=== PATIENT | female | born 1995 | race African-American/Black ===

== ENCOUNTER 2017-10-19 23:00 | Inpatient (IN) | payer OTHER ==
[2017-10-19] MEDS ORDERED: PROMETHAZINE HCL 25 MG/1 ML VIAL IVPB ONE (23:20)
[2017-10-19] MEDS ORDERED: BUTORPHANOL TARTRATE 1 MG/ML VIAL IVPB ONE (23:20)
[2017-10-19] MEDS: DEXTROSE 5%-LACTATED RINGERS 1,000 ML IV SCH (23:30)
[2017-10-19] MEDS ORDERED: AMPICILLIN SODIUM 2 GM VIAL ONE (23:31)
[2017-10-19] MEDS ORDERED: AMPICILLIN - 2 GM in SODIUM CHLORIDE 100 ML IVPB ONE (23:45)
[2017-10-20 00:12] LABS: BASO % 0.3 % (0-2.0); EOS % 0.8 % (0-4.5); HEMATOCRIT 36.2 % (32.4-45.2); HEMOGLOBIN 12.3 GM/dL (10.7-15.3); LYMPH % 14.4 % (8-40); MCH 31.7 pg (25.7-33.7); MCHC 33.8 g/dl (32.0-36.0); MEAN CELL VOLUME 93.8 fl (80-96); MEAN PLT VOLUME 8.1 fl (7.5-11.1); MONO % 8.3 % (3.8-10.2); NEUT % 76.2 % (42.8-82.8); PLATELET COUNT 287 K/MM3 (134-434); RBC 3.86 M/mm3 (3.60-5.2); RDW 14.1 % (11.6-15.6); WHITE BLOOD COUNT 10.2 K/mm3 (4.0-10.0)
[2017-10-20] MEDS ORDERED: BUTORPHANOL TARTRATE 1 MG/ML VIAL ONE ×2 (00:23)
[2017-10-20] MEDS ORDERED: PROMETHAZINE HCL 25 MG/1 ML VIAL ONE (00:23)
[2017-10-20 00:25] LABS: INR 0.95 (0.83-1.09); PROTHROMBIN TIME (PATIENT) 10.7 SEC (9.7-13.0)
[2017-10-20 00:28] LABS: ACTIVATED PTT 28.7 SECONDS (25.2-36.5)
[2017-10-20 00:40] LABS: ANION GAP 8 (8-16); BLOOD UREA NITROGEN 7 mg/dL (7-18); CHLORIDE 105 mmol/L (98-107); CO2 24 mmol/L (21-32); CREATININE 0.6 mg/dL (0.55-1.02); GLUCOSE,RANDOM 91 mg/dL (74-106); SODIUM 137 mmol/L (136-145)
[2017-10-20 00:51] VITALS: BMI 39.5
[2017-10-20] MEDS ORDERED: FENTANYL/BUPIVACAINE/NS/PF - PCEA - 50 ML DISP.SYRIN EP ONE (02:55)
[2017-10-20] MEDS ORDERED: AMPICILLIN SODIUM 1 GM VIAL ONE (02:56)
[2017-10-20] MEDS ORDERED: BUPIVACAINE HCL/PF 0.25% (2.5MG/ML) 10 ML VIAL ONE (03:08)
[2017-10-20] MEDS ORDERED: FENTANYL/BUPIVACAINE/NS/PF - PCEA - 50 ML DISP.SYRIN EP SCH (03:30)
[2017-10-20] MEDS ORDERED: NALOXONE HCL 0.4 MG/ML VIAL IVPUSH PRN (03:32)
[2017-10-20] MEDS ORDERED: AMPICILLIN - 1 GM in SODIUM CHLORIDE 100 ML IVPB SCH (03:45)
[2017-10-20] MEDS ORDERED: OXYTOCIN 20 UNITS in 0.9% NS 20 UNIT/1,000 ML INFUS.BAG IV ONE (04:04)
[2017-10-20] MEDS ORDERED: BENZOCAINE 20% 57 GM BOTTLE TP PRN (04:55)
[2017-10-20] MEDS ORDERED: BENZOCAINE 28 GM HEMORRHOIDAL OINTMENT TP PRN (04:55)
[2017-10-20] MEDS ORDERED: BISACODYL 10 MG SUPP.RECT RC PRN (04:55)
[2017-10-20] MEDS ORDERED: METHYLERGONOVINE MALEATE 0.2 MG/1 ML AMP IM PRN (04:55)
[2017-10-20] MEDS ORDERED: WITCH HAZEL 50% (TUCKS) 40 PAD/JAR PAD TP PRN (04:55)
[2017-10-20] MEDS ORDERED: OXYTOCIN 20 UNITS in 0.9% NS 20 UNIT/1,000 ML INFUS.BAG IV SCH (05:00)
[2017-10-20] MEDS ORDERED: ELECTROLYTE-148 SOLN 1,000 ML IV SCH (05:00)
--- NOTE | 2017-10-20 05:10 | HP ---
Past Medical History - Primary Care Physician PCP:: Sarah Suárez - Admission Chief Complaint: Active Labor History of Present Illness: G1 EDc 10/18/17 EGA 38.6 admitted in active labor PMH none PSH none GBS positive treated with 2 doses History Source: Patient Limitations to Obtaining History: No Limitations - Past Medical History ...: 1 ...Para: 0 ...Term: 0 ...: 0 ...Spon : 0 ...Induced : 0 ...Multiple Gestation: 0 ...LMP: 01/21/17 ... Weeks Gestation by Dates: 38.5 ...EDC by Dates: 10/28/17 ...EDC by Sono: 10/27/17 - Past Surgical History Past Surgical History: Yes: None Hx Myomectomy: No Hx Transabdominal Cerclage: No - Smoking History Smoking history: Never smoked Have you smoked in the past 12 months: No - Alcohol/Substance Use Hx Alcohol Use: No History of Substance Use: reports: None - Social History History of Recent Travel: No Home Medications - Allergies Allergies/Adverse Reactions: Allergies Allergy/AdvReac Type Severity Reaction Status Date / Time shellfish derived Allergy Severe Swelling Verified 10/19/17 23:52 - Home Medications Home Medications: Ambulatory Orders Tablet 1 tablet PO DAILY 10/19/17 Review of Systems - Review of Systems Constitutional: reports: No Symptoms Eyes: reports: No Symptoms HENT: reports: No Symptoms Neck: reports: No Symptoms Cardiovascular: reports: No Symptoms Respiratory: reports: No Symptoms Gastrointestinal: reports: No Symptoms Genitourinary: reports: No Symptoms Breasts: reports: No Symptoms Reported Musculoskeletal: reports: No Symptoms Integumentary: reports: No Symptoms Neurological: reports: No Symptoms Endocrine: reports: No Symptoms Hematology/Lymphatic: reports: No Symptoms Psychiatric: reports: No Symptoms Physical Exam - Maternity Vital Signs: Vital Signs Temperature 98.4 F 10/20/17 04:00 Pulse Rate 102 H 10/20/17 03:45 Respiratory Rate 18 10/20/17 03:45 Blood Pressure 124/66 10/20/17 03:45 O2 Sat by Pulse Oximetry (%) 100 10/20/17 03:45 Constitutional: Yes: Well Nourished, No Distress Neck: Yes: WNL Cardiovascular: Yes: WNL Lungs: Clear to auscultation - Abdominal Exam/OB Fundal Height: 38 Number of Fetuses: Single Presentation: Vertex Contractions: Yes Regularity: Regular Monitor Mode: External Heart Rate (range): 140 Category: II Decelerations: Variable - Vaginal Exam/OB Dilatation (cm): 10 Effacement (%): 100 Presentation: Vertex/Position Station: +2 - Physical Exam Musculoskeletal: Yes: WNL Extremities: Yes: WNL Edema: No Psychiatric: Yes: WNL, Alert, Oriented - Labs Lab Results: CBC, BMP 10/19/17 23:53 10/19/17 23:53 Problem List - Problems (1) Spontaneous onset of labor after 37 but before 39 completed weeks gestation with delivery by planned section Code(s): O75.82 - ONSET LABOR 37-39 WEEKS, W DEL BY (PLANNED) SECTION Assessment/Plan iup at 38.5 week labor Plan anticipate delivery
[2017-10-20 05:14] LABS: VENOUS PO2 19.4 mmHg (28-48)
--- NOTE | 2017-10-20 05:16 | PN ---
Delivery - Delivery Vaginal Delivery: No Problems (nuchal cord x 1) Episiotomy/Laceration: Left Mediolateral EBL (cc): 250 Delivery, Single - Stages of Labor Placenta: Yes: Spontaneous - Condition of Infant Infant Gender: Male Position: OA - Feeding Plan Initial Plan: Elected not to breastfeed exclusively throughout hospitalization
[2017-10-20 05:17] LABS: VENOUS PC02 63.6 mmHg (38-52); VENOUS PH 7.23 (7.32-7.42)
[2017-10-20] MEDS: FERROUS SO4 325 MG TABLET (FP) PO SCH ×3 (07:26→17:43)
[2017-10-20] MEDS ORDERED: TUBERCULIN PPD 5 TU/0.1ML SYRINGE (IN PATIENT USE ONLY) ID ONE (07:30)
[2017-10-20] MEDS: PRENATAL VITAMINS W/ FOLIC ACID TABLET (FP) PO SCH (10:45)
[2017-10-20] MEDS: IBUPROFEN 600 MG TABLET (FP) PO PRN (20:45)
[2017-10-20] MEDS: ACETAMINOPHEN 325 MG TABLET (FP) PO PRN (20:46)
[2017-10-21] MEDS: DEXTROSE 5%-LACTATED RINGERS 1,000 ML IV SCH (05:06)
[2017-10-21] MEDS: ACETAMINOPHEN 325 MG TABLET (FP) PO PRN ×3 (05:14→21:26)
[2017-10-21 08:05] LABS: BASO % 0.6 % (0-2.0); EOS % 1.3 % (0-4.5); HEMATOCRIT 32.5 % (32.4-45.2); HEMOGLOBIN 11.1 GM/dL (10.7-15.3); LYMPH % 15.5 % (8-40); MCH 32.3 pg (25.7-33.7); MCHC 34.1 g/dl (32.0-36.0); MEAN CELL VOLUME 94.6 fl (80-96); MEAN PLT VOLUME 7.6 fl (7.5-11.1); MONO % 8.6 % (3.8-10.2); PLATELET COUNT 246 K/MM3 (134-434); RBC 3.44 M/mm3 (3.60-5.2); RDW 14.1 % (11.6-15.6); WHITE BLOOD COUNT 9.5 K/mm3 (4.0-10.0)
[2017-10-21] MEDS: FERROUS SO4 325 MG TABLET (FP) PO SCH ×3 (09:07→17:06)
[2017-10-21] MEDS: PRENATAL VITAMINS W/ FOLIC ACID TABLET (FP) PO SCH (09:07)
[2017-10-21] MEDS: IBUPROFEN 600 MG TABLET (FP) PO PRN ×2 (15:08→21:26)
[2017-10-21] MEDS ORDERED: SENNOSIDES/DOCUSATE COMBO (SENNA PLUS) TABLET (UD) PO PRN (22:00)
[2017-10-22] MEDS: FERROUS SO4 325 MG TABLET (FP) PO SCH (07:17)
--- NOTE | 2017-10-22 08:32 | PN ---
Post Note - Post Date of Delivery: 10/20/17 Post Day: 1 Vital Signs: Vital Signs - 24 hr 10/21/17 10/21/17 10:00 22:00 Temperature 98.4 F 98.2 F Pulse Rate 96 H 85 Respiratory 20 18 Rate Blood Pressure 112/82 123/52 - Subjective Subjective: No Complaints - Objective Afebrile: Yes Breast: Not engorged Abdomen: Soft, Non-tender Uterus: Fundus firm Vagina: Scant lochia Extremities: Non-tender - Assessment/Plan (1) Spontaneous onset of labor after 37 but before 39 completed weeks gestation with delivery by planned section Assessment: S/P Normal Plan: Routine Care
--- NOTE | 2017-10-22 08:47 | DS ---
Physical Exam-COMPUTER SYSTEMS ARCHITECT Vital Signs: Vital Signs Temperature 98.2 F 10/21/17 22:00 Pulse Rate 85 10/21/17 22:00 Respiratory Rate 18 10/21/17 22:00 Blood Pressure 123/52 10/21/17 22:00 O2 Sat by Pulse Oximetry (%) 100 10/20/17 04:45 Constitutional: Yes: Well Nourished, No Distress Neck: Yes: WNL Cardiovascular: Yes: WNL Respiratory: Yes: WNL Gastrointestinal: Yes: WNL Labs: CBC, BMP 10/21/17 07:00 10/19/17 23:53 Delivery - Delivery Vaginal Delivery: No Problems (nuchal cord x 1) Type of Anesthesia: Local, Epidural Episiotomy/Laceration: Left Mediolateral EBL (cc): 250 Delivery, Single - Stages of Labor Date 1st Stage Initiatied: 10/19/17 Time 1st Stage Initiated: 17:00 Date 2nd Stage Initiated: 10/20/17 Time 2nd Stage Initiated: 04:20 Date of Delivery: 10/20/17 Time of Delivery: 04:37 Time Placenta Delivered: 04:45 Placenta: Yes: Spontaneous - Condition of Infant Vegetable Cutter/Wound Treatment Rn Present: No Gender: Male Weight: 6 lb 15 oz Position: OA Total Hours ROM (Hrs/Mins): 2h 0m - 1 Minute Total Score: 3 5 Minutes Total Score: 6 10 Minutes Total Score: 8 - [place] Feeding Plan Initial Plan: Elected not to breastfeed exclusively throughout hospitalization Discharge Summary Reason For Visit: ADMIT LABOR Current Active Problems Spontaneous onset of labor after 37 but before 39 completed weeks gestation with delivery by planned section (Acute) Procedures: Principal: Normal vaginal delivery Condition: Good - Instructions Diet, Activity, Other Instructions: Dr. Carina Burgos [employer] Tender discharge instructions Physical activity Resume your normal everyday activity as tolerated no heavy lifting or exercise until seen by your surgeon. You may walk unlimited harjit of and climb stairs. You may resume driving the car when you feel safe and comfortable behind the wheel. No sexual activity as instructed by Dr. Burgos. Wound care If you have a bandage, leave it on, and keep dry for 48-72 hours. After that time discard the outer bandage. If they are tapes on the skin under the out of bandage leave them in place. They will peel off in the next 7 to 10 days. Do Not Peel them off. You may shower the day after surgery. If there are tapes present on the skin, you may shower over them. Diet There are no dietary restrictions. Eat healthy, high-fiber foods. Drink 6 to 8 glasses of liquid each day. This will assist in keeping your bowels are regular. Pain management You may take Tylenol or acetaminophen or Ibuprofen (for example, Motrin, Advil etc.) from my pain prescription medication is ordered should be taken as prescribed for moderate to severe pain. Call Dr. Burgos for any of the following: Severe pain not relieved by medication Fever of 101 or higher Excessive bleeding or drainage on dressing Inability to urinate Call the office at [phone] for an appointment in seven days. Referrals: Sarah Suárez MD [Staff Physician] - Disposition: HOME - Home Medications Comprehensive Discharge Medication List: Ambulatory Orders Tablet 1 tablet PO DAILY 10/19/17 Ibuprofen [Motrin -] 600 mg PO TID #21 tablet 10/20/17
[2017-10-22 08:57] VITALS: BP 116/71; PULSE 104; TEMP 98.4
[2017-10-22] MEDS: PRENATAL VITAMINS W/ FOLIC ACID TABLET (FP) PO SCH (09:14)
== END 2017-10-22 11:55 | disposition home or self-care (01) | DRG 775 ==
LOC: JDEL 23:00 → JLDR 23:20 → J3W 10-20 06:06
PROVIDERS: ADMIT Obstetrics & Gynecology; ATTEND Obstetrics & Gynecology
PROC: 0W8NXZZ Division of Female Perineum, External Approach (ICD-10-PCS; principal; 2017-10-20)
PROC: 10E0XZZ Delivery of Products of Conception, External Approach (ICD-10-PCS; 2017-10-20)
DX: O69.81X0 Labor and delivery complicated by cord around neck, without compression, not applicable or unspecified (principal); Z3A.38 38 weeks gestation of pregnancy; Z37.0 Single live birth
CPT/HCPCS: 36415; 59409; 80048; 82803; 85025; 85610; 85730; 86593; 86850; 86900; 86901